=== PATIENT | male | born 1985 | race Caucasian/White ===

== ENCOUNTER 2020-11-21 07:15 | Emergency (ER) | payer BC ==
[~2020-11-21] VITALS: Ht 172.7 cm; Wt 86.0 kg
[2020-11-21 09:05] LABS: BASOPHILS % 0.8 % (0.0-2.0); EOSINOPHILS % 0.5 % (0.0-5.0); HEMATOCRIT. 44.5 % (42.0-52.0); HEMOGLOBIN. 15.1 g/dL (14.0-18.0); LYMPHOCYTES % 19.6 % (20.0-50.0); MEAN CORPUSCULAR HEMOGLOBIN 28.3 pg (28.0-32.0); MEAN CORPUSCULAR VOLUME 83.2 fL (80.0-94.0); MONOCYTES % 4.2 % (2.0-8.0); NEUTROPHILS % 74.9 % (40.0-76.0); PLATELET 390 x1000/uL (130-400); RED BLOOD CELL COUNT 5.35 mill/uL (4.7-6.1); RED CELL DISTRIBUTION WIDTH 13.4 % (11.6-14.6)
[2020-11-21 09:18] LABS: CHLORIDE 102 mEq/L (98-107)
[2020-11-21 09:22] LABS: ETHANOL BLOOD < 10 mg/dL
[2020-11-21] MEDS ORDERED: LACTATED RINGERS 1,000 ML IV SCH (09:30)
[2020-11-21] MEDS ORDERED: ONDANSETRON HCL 4MG/2ML INJ IV ONE (12:45)
[2020-11-21] MEDS ORDERED: MECL-159 MT (13:12)
[2020-11-21] MEDS ORDERED: ONDA4TAB5 MT (13:13)
[2020-11-21 13:33] VITALS: BP 148/76
== END 2020-11-21 13:33 | disposition home or self-care (01) ==
LOC: ER 07:37
DX: H93.3X9 Disorders of unspecified acoustic nerve (principal); H55.00 Unspecified nystagmus; R73.03 Prediabetes; I10 Essential (primary) hypertension; Z79.4 Long term (current) use of insulin; I49.3 Ventricular premature depolarization; F12.90 Cannabis use, unspecified, uncomplicated
CPT/HCPCS: 36415; 80048; 80076; 80320; 83690; 85025; 93005; 96361; 96374; 99285; J2405; Z7610; G0480